=== PATIENT | female | born 1995 | race African-American/Black ===

== ENCOUNTER 2016-05-15 21:54 | Emergency (ER) | payer OTHER ==
[~2016-05-15] VITALS: Ht 170.2 cm; Wt 160.4 kg
[~2016-05-15 21:54] MED LIST: BENTYL10 MG PO; BENTYL20 MG PO; CATAPRES-TTS 10.1 MG PO; CAVAN-FOLATE D1 EACH PO; CLINDAMYCIN HC300 MG PO; COLACE100 MG PO; DOCUSATE SODIU100 MG PO; ENDOCET 5-3251 EACH PO; FEOSOL325 MG PO; FOCALIN5 MG PO; HYDROCODON-ACE1 EAC7 PO; IBUPROFEN800 MG PO; KEFLEX500 MG PO; LOMOTIL TABLET1 EACH PO; NORCO 5/3251 TABLET PO; PERCOCET 5/31 TABLET PO; PROMETHAZINE HC25 M1 PO; TYLENOL EXTRA500 MG PO; ZOFRAN ODT8 MG PO; [UNRECOGNIZED DRUG - REMARK]
[2016-05-15] MEDS ORDERED: CLEOCIN300 MG PO (22:36)
[2016-05-15 22:52] VITALS: BP 145/79
== END 2016-05-15 22:57 | disposition home or self-care (01) ==
LOC: EME 21:54
DX: N61.1 Abscess of the breast and nipple (principal); Z48.817 Encounter for surgical aftercare following surgery on the skin and subcutaneous tissue; F17.200 Nicotine dependence, unspecified, uncomplicated
CPT/HCPCS: 99281; 99284

== ENCOUNTER 2017-01-05 10:03 | Outpatient (CLI) | payer OTHER ==
[~2017-01-05 10:03] MED LIST changes: +CLEOCIN300 MG PO
[2017-01-05 10:22] VITALS: BP 141/65
[2017-01-05 10:56] LABS: ADD MIUA? NO; BILIRUBIN NEGATIVE; BLOOD NEGATIVE; COLOR YELLOW ((YELLOW)); GLUCOSE (STRIP) NEGATIVE; KETONES NEGATIVE; LEUKOCYTES NEGATIVE; NITRITE NEGATIVE; PROTEIN (STRIP) NEGATIVE; SPECIFIC GRAVITY 1.014 (1.000-1.030); UCUL ADDED? NO; UROBILINOGEN 0.2 MG/DL (0.2-1.0)
[2017-01-05 18:55] LABS: CANDIDA DNA PROBE POSITIVE; GARDNERELLA DNA PROBE NEGATIVE; INTERNAL CONTROL VALID? YES
== END 2017-01-05 11:13 | disposition home or self-care (01) ==
LOC: LDRP-OP → 2WEST 10:04 → LDRP-OP 03-20 14:41
PROVIDERS: Advanced Practice Midwife
DX: O60.03 Preterm labor without delivery, third trimester (principal); Z3A.36 36 weeks gestation of pregnancy
CPT/HCPCS: 59025; 81003; 87077; 87086; 87186; 87480; 87510; 87660; G0378

== ENCOUNTER 2017-01-18 09:22 | Inpatient (IN) | payer OTHER ==
[~2017-01-18] VITALS: Ht 170.2 cm; Wt 155.4 kg
[~2017-01-18 09:22] MED LIST changes: +PRENATAL TABLE1 EAC3 PO
[2017-01-18 09:55] VITALS: BP 116/58
[2017-01-18 10:42] LABS: EOSINOPHIL (%) 0.6 % (0-5); EOSINOPHIL COUNT 0.1 K/uL (0-0.3); HEMATOCRIT 33.1 % (36.0-46.0); IMMATURE GRANULOCYTE (%) 0.6 % (0.0-0.7); IMMATURE GRANULOCYTE COUNT 0.1 K/uL; INSTRUMENT ABS NEUTROPHIL CT 8.4 K/uL; LYMPHOCYTE COUNT 2.5 K/uL (1.0-2.8); MCH 26.3 PG (29.0-34.0); MCHC 32.3 G/DL (30.0-36.0); MCV 81.3 FL (83-99); MEAN PLAT.VOLUME 10.7 uM^3 (9.5-12.4); MONOCYTE (%) 5.6 % (3-12); MONOCYTE COUNT 0.7 K/uL (0-0.8); NEUTROPHIL (%) 71.5 % (45-76); NEUTROPHIL COUNT 8.4 K/uL (1.8-6.4); PLATELET COUNT 324 K/uL (156-360); RBC DIS.WIDTH-CV 14.6 % (11.8-14.6); RBC DIS.WIDTH-SD 42.5 % (39-53); RED BLOOD COUNT 4.07 M/uL (3.80-5.20); WHITE BLOOD COUNT 11.7 K/uL (4.1-10.2)
[2017-01-18 11:31] VITALS: BP 120/56
[2017-01-18 17:04] VITALS: BP 120/64
[2017-01-18 17:51] VITALS: BP 115/57
[2017-01-19 07:03] LABS: EOSINOPHIL (%) 0.9 % (0-5); EOSINOPHIL COUNT 0.1 K/uL (0-0.3); HEMATOCRIT 28.3 % (36.0-46.0); IMMATURE GRANULOCYTE (%) 0.7 % (0.0-0.7); IMMATURE GRANULOCYTE COUNT 0.1 K/uL; INSTRUMENT ABS NEUTROPHIL CT 7.8 K/uL; LYMPHOCYTE COUNT 2.9 K/uL (1.0-2.8); MCH 25.8 PG (29.0-34.0); MCHC 31.8 G/DL (30.0-36.0); MCV 81.1 FL (83-99); MEAN PLAT.VOLUME 10.7 uM^3 (9.5-12.4); MONOCYTE (%) 6.5 % (3-12); MONOCYTE COUNT 0.8 K/uL (0-0.8); NEUTROPHIL COUNT 7.8 K/uL (1.8-6.4); PLATELET COUNT 273 K/uL (156-360); RBC DIS.WIDTH-CV 14.5 % (11.8-14.6); RBC DIS.WIDTH-SD 42.3 % (39-53); RED BLOOD COUNT 3.49 M/uL (3.80-5.20); WHITE BLOOD COUNT 11.6 K/uL (4.1-10.2)
[2017-01-19 07:41] VITALS: BP 92/53
[2017-01-19 10:58] VITALS: BP 113/55
[2017-01-19 15:41] VITALS: BP 107/51
[2017-01-20 08:30] VITALS: BP 118/42
[2017-01-20 10:22] VITALS: BP 141/95
[2017-01-20 11:58] VITALS: BP 128/64
[2017-01-20 14:16] VITALS: BP 119/61
[2017-01-20 22:35] VITALS: BP 131/60
[2017-01-21 08:59] VITALS: BP 113/56
[2017-01-21 15:10] VITALS: BP 124/70
[2017-01-21 22:58] VITALS: BP 129/60
[2017-01-22 07:54] VITALS: BP 119/66
[2017-01-22] MEDS ORDERED: VITAMIN C500 M1 PO (09:36)
[2017-01-22] MEDS ORDERED: DOCUSATE SODIU100 MG PO (09:36)
[2017-01-22] MEDS ORDERED: IBUPROFEN800 MG PO (09:36)
[2017-01-22] MEDS ORDERED: ENDOCET 5-3251 EACH PO (09:36)
[2017-01-22] MEDS ORDERED: FERROUS SULFAT325 MG PO (09:36)
== END 2017-01-22 11:44 | disposition home or self-care (01) | DRG 765 ==
LOC: 2SOUTH 09:22 → 2WEST 09:26 → 2SOUTH 15:59 → 2WEST 01-22 11:44
PROVIDERS: Obstetrics & Gynecology
PROC: 10D00Z1 Extraction of Products of Conception, Low, Open Approach (ICD-10-PCS; principal; 2017-01-18)
DX: O34.211 Maternal care for low transverse scar from previous cesarean delivery (principal); O36.5930 Maternal care for other known or suspected poor fetal growth, third trimester, not applicable or unspecified; O99.02 Anemia complicating childbirth; D62 Acute posthemorrhagic anemia; O98.82 Other maternal infectious and parasitic diseases complicating childbirth; B37.3 Candidiasis of vulva and vagina; O99.214 Obesity complicating childbirth; E66.9 Obesity, unspecified; Z68.43 Body mass index [BMI] 50.0-59.9, adult; O99.334 Smoking (tobacco) complicating childbirth; F17.200 Nicotine dependence, unspecified, uncomplicated; O99.824 Streptococcus B carrier state complicating childbirth; Z3A.37 37 weeks gestation of pregnancy; Z37.0 Single live birth
CPT/HCPCS: 85025; 86850; 86900; 86901; J1170; J1580; J1885; J2274; J2405; J2590; J3010; J7050; J7120